=== PATIENT | male | born 1940 | race Caucasian/White ===

== ENCOUNTER 2019-03-28 02:56 | Observation (INO) | payer MEDICARE, OTHER ==
--- NOTE | 2019-03-28 03:09 | ED ---
Altered Mental Status HPI <Alejandra Pennington - Last Filed: 03/28/19 04:58> <Nilsa Stokes - Last Filed: 03/28/19 06:34> - General Stated Complaint: Altered Mental Status Time Seen by Provider: 03/28/19 03:08 - History of Present Illness Initial Comments: 79-year-old male patient presents to the emergency department today for evaluation after experiencing an episode of altered mental status. Patient's son states that they were preparing the patient for bed when he became acutely confused, he was repeating the same two questions over and over again. Family states he was not able to move his left side and seemed to be drifting to the left. States that this persisted so they called EMS. They report that symptoms started at 2:30 this morning. States that he was just discharged from [facility] after experiencing a fall earlier in the day. Family reports he underwent lab testing, computed tomography scan of the brain, and computed tomography scan of the abdomen. States that testing was unremarkable and he was discharged home. Family states that he is currently taking aspirin 2-3 times per week but is on no other anticoagulant or antiplatelet medications. Patient does have past medical history significant for COPD, and hypertension. Patient denies any recent rash, fever, chills, shortness breath, chest pain, abdominal pain, nausea, vomiting, diarrhea, constipation, back pain, numbness, tingling, dizziness, weakness, hematuria, dysuria, urinary urgency, urinary frequency, headache, visual changes, or any other complaints. (Alejandra Pennington) - Related Data Allergies Allergy/AdvReac Type Severity Reaction Status Date / Time No Known Allergies Allergy Verified 03/28/19 04:28 Review of Systems ROS Other: All systems not noted in ROS Statement are negative. <Alejandra Pennington - Last Filed: 03/28/19 04:58> ROS Other: All systems not noted in ROS Statement are negative. <Nilsa Stokes - Last Filed: 03/28/19 06:34> ROS Statement: Those systems with pertinent positive or pertinent negative responses have been documented in the HPI. General Exam General appearance: alert, in no apparent distress, other (This is a well- developed, well-nourished elderly male patient in no acute distress. Vital signs upon presentation are temperature 98.6F, pulse 75, respirations 13, blood pressure 89/40, pulse ox 98% on room air.) Eye exam: Present: normal appearance, PERRL, EOMI. Absent: scleral icterus, conjunctival injection, nystagmus, periorbital swelling ENT exam: Present: normal exam, normal oropharynx, mucous membranes moist Respiratory exam: Present: normal lung sounds bilaterally. Absent: respiratory distress, wheezes, rales, rhonchi, stridor Cardiovascular Exam: Present: regular rate, normal rhythm, normal heart sounds. Absent: systolic murmur, diastolic murmur, rubs, gallop, clicks GI/Abdominal exam: Present: soft, normal bowel sounds. Absent: distended, tenderness, guarding, rebound, rigid Neurological exam: Present: alert, CN II-XII intact. Absent: oriented X3 (Oriented 2) Expanded Speech: Present: fluid speech, expressive aphasia (Mild) Cranial nerves: EOM's Intact: Normal, Tongue Deviation: Normal, Nystagmus: Normal, Facial Sensation: Normal Motor strength exam: RUE: 5, LUE: 5, RLE: 2/1 (Chronic), LLE: 2/1 (Chronic) Eye Response: (4) open spontaneously Motor Response: (6) obeys commands Verbal Response: (4) confused conversation Jenaro Total: 14 Psychiatric exam: Present: normal affect, normal mood Skin exam: Present: warm, dry, intact, normal color. Absent: rash <Alejandra Pennington M - Last Filed: 03/28/19 04:58> Course Vital Signs 03/28/19 02:59 Temperature 98.6 F Pulse Rate 75 Respiratory 13 Rate Blood Pressure 89/40 O2 Sat by Pulse 98 Oximetry Medical Decision Making - Lab Data Result diagrams: 03/28/19 03:10 03/28/19 03:10 <Alejandra Pennington M - Last Filed: 03/28/19 04:58> - Lab Data Result diagrams: 03/28/19 03:10 03/28/19 03:10 <Nilsa Stokes P - Last Filed: 03/28/19 06:34> - Medical Decision Making She care was signed out to me by Alejandra Pennington nurse practitioner. Patient had presented for evaluation of change in mental status, patient apparently had some expressive aphasia and was leaning to the left. However on arrival patient was speaking clearly, moving all extremities only abnormality noted was some difficulty in naming items during the NIH test. Labs and imaging were ordered. Patient was noted to be mildly anemic. Head CT was unremarkable. At this time he do feel the patient warrants admission for evaluation of TIA. Patient care was discussed with Dr. Hollins who accepts the admission. I updated the patient and his family at a time, initially the patient wanted to decline admission however was encouraged to stay by his daughter and grandson at bedside. (Nilsa Stokes) - Lab Data Lab Results 03/28/19 03/28/19 03/28/19 Range/Units 03:10 03:10 03:10 WBC 5.8 (3.8-10.6) k/uL RBC 3.61 L (4.30-5.90) m/uL Hgb 10.7 L (13.0-17.5) gm/dL Hct 33.5 L (39.0-53.0) % MCV 92.9 (80.0-100.0) fL MCH 29.8 (25.0-35.0) pg MCHC 32.0 (31.0-37.0) g/dL RDW 15.0 (11.5-15.5) % Plt Count 286 (150-450) k/uL Neutrophils % 54 % Lymphocytes % 28 % Monocytes % 11 % Eosinophils % 2 % Basophils % 1 % Neutrophils # 3.1 (1.3-7.7) k/uL Lymphocytes # 1.6 (1.0-4.8) k/uL Monocytes # 0.6 (0-1.0) k/uL Eosinophils # 0.1 (0-0.7) k/uL Basophils # 0.1 (0-0.2) k/uL PT 10.9 (9.0-12.0) sec INR 1.0 (<1.2) APTT 26.4 (22.0-30.0) sec Sodium 133 L (137-145) mmol/L Potassium 4.1 (3.5-5.1) mmol/L Chloride 95 L (98-107) mmol/L Carbon Dioxide 29 (22-30) mmol/L Anion Gap 9 mmol/L BUN 20 (9-20) mg/dL Creatinine 1.69 H (0.66-1.25) mg/dL Est GFR (CKD-EPI)AfAm 44 (>60 ml/min/1.73 sqM) Est GFR (CKD-EPI)NonAf 38 (>60 ml/min/1.73 sqM) Glucose 81 (74-99) mg/dL Calcium 9.1 (8.4-10.2) mg/dL Magnesium 2.1 (1.6-2.3) mg/dL Total Bilirubin 0.5 (0.2-1.3) mg/dL AST 39 (17-59) U/L ALT 21 (21-72) U/L Alkaline Phosphatase 80 (38-126) U/L Troponin I (0.000-0.034) ng/mL Total Protein 6.3 (6.3-8.2) g/dL Albumin 3.3 L (3.5-5.0) g/dL 03/28/19 Range/Units 03:10 WBC (3.8-10.6) k/uL RBC (4.30-5.90) m/uL Hgb (13.0-17.5) gm/dL Hct (39.0-53.0) % MCV (80.0-100.0) fL MCH (25.0-35.0) pg MCHC (31.0-37.0) g/dL RDW (11.5-15.5) % Plt Count (150-450) k/uL Neutrophils % % Lymphocytes % % Monocytes % % Eosinophils % % Basophils % % Neutrophils # (1.3-7.7) k/uL Lymphocytes # (1.0-4.8) k/uL Monocytes # (0-1.0) k/uL Eosinophils # (0-0.7) k/uL Basophils # (0-0.2) k/uL PT (9.0-12.0) sec INR (<1.2) APTT (22.0-30.0) sec Sodium (137-145) mmol/L Potassium (3.5-5.1) mmol/L Chloride (98-107) mmol/L Carbon Dioxide (22-30) mmol/L Anion Gap mmol/L BUN (9-20) mg/dL Creatinine (0.66-1.25) mg/dL Est GFR (CKD-EPI)AfAm (>60 ml/min/1.73 sqM) Est GFR (CKD-EPI)NonAf (>60 ml/min/1.73 sqM) Glucose (74-99) mg/dL Calcium (8.4-10.2) mg/dL Magnesium (1.6-2.3) mg/dL Total Bilirubin (0.2-1.3) mg/dL AST (17-59) U/L ALT (21-72) U/L Alkaline Phosphatase (38-126) U/L Troponin I 0.026 (0.000-0.034) ng/mL Total Protein (6.3-8.2) g/dL Albumin (3.5-5.0) g/dL Disposition Decision to Admit Reason: Admit from EC Decision Date: 03/28/19 Decision Time: 04:58 <Alejandra Pennington - Last Filed: 03/28/19 04:58> <Nilsa Stokes - Last Filed: 03/28/19 06:34> Clinical Impression: TIA (transient ischemic attack) Disposition: ADMITTED IP TO THIS [facility] Condition: Serious Referrals: Nonstaff,Physician [Primary Care Provider] - 1-2 days
[2019-03-28 04:21] LABS: Basophils # (A) 0.1 k/uL (0-0.2); Basophils % (A) 1 %; Eosinophils # (A) 0.1 k/uL (0-0.7); Eosinophils % (A) 2 %; HCT 33.5 % (39.0-53.0); HGB 10.7 gm/dL (13.0-17.5); Lymphocytes # (A) 1.6 k/uL (1.0-4.8); Lymphocytes % (A) 28 %; MCH 29.8 pg (25.0-35.0); MCV 92.9 fL (80.0-100.0); Mean Platelet Volume 6.6; Monocytes # (A) 0.6 k/uL (0-1.0); Monocytes % (A) 11 %; Neutrophils # (A) 3.1 k/uL (1.3-7.7); Neutrophils % (A) 54 %; Platelet Count 286 k/uL (150-450); RBC 3.61 m/uL (4.30-5.90); WBC 5.8 k/uL (3.8-10.6)
[2019-03-28 04:22] LABS: Albumin 3.3 g/dL (3.5-5.0); Calcium 9.1 mg/dL (8.4-10.2); Magnesium 2.1 mg/dL (1.6-2.3); Potassium 4.1 mmol/L (3.5-5.1); Total Bilirubin 0.5 mg/dL (0.2-1.3); Total Protein 6.3 g/dL (6.3-8.2)
[2019-03-28 04:23] LABS: Partial Thromboplastin Time 26.4 sec (22.0-30.0); Prothrombin Time 10.9 sec (9.0-12.0)
--- NOTE | 2019-03-28 04:50 | CT ---
EXAM: CT Head Without Intravenous Contrast CLINICAL HISTORY: ITS.REASON CT Reason: Neuro Deficits TECHNIQUE: Axial computed tomography images of the head/brain without intravenous contrast. DLP is 1178.4 mGy-cm. This CT exam was performed using one or more of the following dose reduction techniques: automated exposure control, adjustment of the mA and/or kV according to patient size, and/or use of iterative reconstruction technique. COMPARISON: No relevant prior studies available. FINDINGS: Brain: No hemorrhage. No mass effect. Involutional changes. White matter hypodensities. Stoddard white junction preserved. MRI more sensitive, if indicated. Ventricles: Age appropriate Sinuses: Well aerated. Mastoid air cells: Partial opacification right mastoids IMPRESSION: No acute intracranial findings
[2019-03-28] MEDS ORDERED: NALOXONE 0.4 MG/ML 1 ML VIAL IV PRN (04:56)
--- NOTE | 2019-03-28 05:02 | XR ---
EXAM: XR Chest, 2 Views CLINICAL HISTORY: ITS.REASON XR Reason: altered mental status TECHNIQUE: Frontal and lateral views of the chest. COMPARISON: No relevant prior studies available. FINDINGS: Cardiac silhouette borderline in size. No overt edema. Elevation right hemidiaphragm. Suspected atelectasis and/or scar. Opacity right costophrenic angle likely scarring and/or summation. Pleural effusion considered less likely. IMPRESSION: Opacity right costophrenic angle likely scarring and/or summation. Pleural effusion considered less likely. Right hemidiaphragm elevation and suspected atelectasis and/or scar.
[2019-03-28] MEDS: SODIUM CHLORIDE 0.9% 1,000 ML IV SCH (07:41)
[2019-03-28] MEDS ORDERED: ASPIRIN 325 MG TAB PO SCH (09:00)
--- NOTE | 2019-03-28 10:52 | P.CNNES ---
History of Present Illness Consult date: 03/28/19 Requesting physician: Alejandra Pennington Reason for Consult: AMS Chief complaint: "Found down on the floor. 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 He was apparently left alone from 10am-5pm, and when family came home, he was on the floor and apparently had no idea how he had gotten there. He does not know if he may have passed out, though there was no bowel/bladder incontinence, tongue/cheek biting or unexplained headache or diffuse myalgias. Although his BLE is chronically weak, he denies other new foca l neuro c/o such as diplopia, amaurosis, facial numbness or droop, vertigo, dysarthria, dysphagia, aphasia, other focal numbness/weakness not mentioned above or tremors. He presented to an OSH where according to family he had CT Head and abdomen and was sent home. Shortly after he arrived home, he was noted to be confused and leaning to the left, so family brought him to our facility for evaluation. By the time he presented to our ER, his neuro symptoms had resolved. No acute vascular intervention was considered given rapidly improving neurological symptoms. He was admitted to our facility for conservative management. His vascular risk factors include age 79, HTN and h/o tobacco use. Review of Systems I have performed a 14-point organ ROS with patient; pertinents are as per HPI. Past Medical History Past Medical History: Cancer, COPD, Diabetes Mellitus, Hypertension Additional Past Medical History / Comment(s): Lung cancer, prostate cancer, skin cancer. History of Any Multi-Drug Resistant Organisms: MRSA Past Surgical History: Back Surgery Past Psychological History: No Psychological Hx Reported Smoking Status: Former smoker Past Alcohol Use History: Heavy Past Drug Use History: None Reported Medications and Allergies Home Medications Medication Instructions Recorded Confirmed Type Ascorbic Acid [Vitamin C with Prema 500 mg PO MOWEFR 03/28/19 03/28/19 History Hips] Aspirin EC [Ecotrin Low Dose] 81 mg PO MOWEFR 03/28/19 03/28/19 History Atorvastatin Calcium [Lipitor] 20 mg PO SUTUTHSA 03/28/19 03/28/19 History Calcium Carbonate/Vitamin D3 1 tab PO DAILY 03/28/19 03/28/19 History [Calcium 600-Vit D3 800 Caplet] Glucosam/Atul-Msm1/C/Nayan/Bosw 1 tab PO DAILY 03/28/19 03/28/19 History [Ivjuwewhfaf-Wkusamfkxcx-HNS Tb] Hydrochlorothiazide [Hydrodiuril] 12.5 mg PO DAILY PRN 03/28/19 03/28/19 History Losartan [Cozaar] 25 mg PO DAILY PRN 03/28/19 03/28/19 History Magnesium Oxide [Mag-Ox] 250 mg PO DAILY 03/28/19 03/28/19 History Multivitamins, Thera [Multivitamin 1 tab PO DAILY 03/28/19 03/28/19 History (formulary)] Nebivolol [Bystolic] 5 mg PO DAILY PRN 03/28/19 03/28/19 History QUEtiapine [SEROquel] 25 mg PO HS 03/28/19 03/28/19 History Ranitidine HCl [Zantac] 75 mg PO HS PRN 03/28/19 03/28/19 History Spironolactone [Aldactone] 12.5 mg PO DAILY 03/28/19 03/28/19 History Vitamin A & D 5000/400 Iu 1 tab PO DAILY 03/28/19 03/28/19 History Vitamin B Complex 1 cap PO DAILY 03/28/19 03/28/19 History Allergies Allergy/AdvReac Type Severity Reaction Status Date / Time No Known Allergies Allergy Verified 03/28/19 07:18 Physical Examination - Vital Signs Vital Signs: Vital Signs Temp Pulse Pulse Resp BP BP Pulse Ox 03/28/19 09:15 98.7 F 77 16 129/80 100 03/28/19 07:19 77 16 122/85 100 03/28/19 06:40 73 15 132/66 100 03/28/19 05:40 73 13 146/86 100 03/28/19 05:10 75 9 L 144/123 100 03/28/19 04:40 71 15 148/115 100 03/28/19 04:01 114/83 03/28/19 03:40 71 19 114/83 03/28/19 03:30 73 15 108/63 03/28/19 03:10 71 15 108/63 03/28/19 03:07 74 20 82/66 96 03/28/19 02:59 98.6 F 75 13 89/40 98 Intake and Output 03/27/19 03/28/19 03/28/19 22:59 06:59 14:59 Other: Weight 93.44 kg Gen NAD Pleasant and cooperative HEENT NCAT Sclera without icterus O/P clear Neck Supple No carotid bruit Cor RRR no m/r/g Lungs CTAB Abd Soft NTND +BS Ext Warm to touch 2+ BLE edema Neuro MS A+Ox4 Normal fluency Able to follow all commands CN PERRL VFF no APD EOMI no nystagmus or NERISSA No facial asymmetry Masseter's symmetric Hearing intact to normal voice bilaterally Speech not dysarthric Equal elevation of palate Tongue midline Sym shrug and SCM bilaterally Motor Normal bulk/tone No pronator drift or tremors Strength 5/5 in BUE 4-/5 in proximal and 2/5 in distal BLE Sens Diminished to LT/temp in BLE No neglect Coord No dysmetria on FTN bilaterally DTRs absent to tr sym throughout Toes mute bilaterally No clonus at achilles Gait Deferred NIHSS [id number] Results - Laboratory Findings CBC and BMP: 03/28/19 03:10 03/28/19 03:10 Abnormal Lab Findings: Abnormal Labs 03/28/19 03/28/19 03:10 03:10 RBC 3.61 L Hgb 10.7 L Hct 33.5 L Sodium 133 L Chloride 95 L Creatinine 1.69 H Albumin 3.3 L - Diagnostic Findings Additional findings: CT Head wo cont 03/28/19. No ICH. Nil acute. I have reviewed neuroimages myself. Assessment and Plan Assessment: Recurrent episodes of AMS, etiology unclear Plan: -Patient declines MRI -Cannot obtain CTA due to renal insufficiency -Carotid duplex -TTE -Has renal insufficiency; unclear baseline. May contribute to his mental status picture if this is acute -TSH, B12 -DVT prophylaxis -d/w patient and family in detail. All questions answered. Thank you for this consultation. Please call with ?. Time with Patient: Greater than 30 (Time spent in direct patient care, greater than 50% of which was spent in [id number]-[id number] counseling and coordination of care: 70 minutes)
--- NOTE | 2019-03-28 11:49 | US ---
EXAMINATION TYPE: US carotid duplex BILAT DATE OF EXAM: 03/28/2019 COMPARISON: NONE CLINICAL HISTORY: Recurrent episodes of AMS. EXAM MEASUREMENTS: RIGHT: Peak Systolic Velocity (PSV) cm/sec ----- Right CCA: 82.0 ----- Right ICA: 82.0 ----- Right ECA: 96.4 ICA/CCA ratio: 1.0 RIGHT: End Diastole cm/sec ----- Right CCA: 18.1 ----- Right ICA: 32.5 ----- Right ECA: 11.6 LEFT: Peak Systolic Velocity (PSV) cm/sec ----- Left CCA: 83.3 ----- Left ICA: 74.2 ----- Left ECA: 79.4 ICA/CCA ratio: 0.9 LEFT: End Diastole cm/sec ----- Left CCA: 24.7 ----- Left ICA: 18.1 ----- Left ECA: 12.9 VERTEBRALS (direction of flow): Right Vertebral: Antegrade Left Vertebral: Antegrade Exam limitations due to body habitus. Mild to moderate plaque noted bilaterally. No evidence of inc reased velocities as visualized IMPRESSION: Mild to moderate degree of grayscale atheromatous plaquing with no sonographically evide nt hemodynamically significant stenosis within either visualized carotid arterial system. Criteria for Assigning % of Stenosis / Diameter reduction (Estimation based on the indirect measurements of the internal carotid artery velocities (ICA PSV). 1. Normal (no stenosis)=ICA PSV < 125 cm/s: ratio < 2.0: ICA EDV<40 cm/s. 2. Less than 50% stenosis=ICA PSV < 125 cm/s: ratio < 2.0: ICA EDV<40 cm/s. 3. 50 to 69% stenosis=ICA PSV of 125 to 230 cm/s: ration 2.0 ? 4.0: ICA EDV 40-100 cm/s. 4. Greater than 70% stenosis to near occlusion= ICA PSV > 230 cm/s: ratio > 4.0: ICA EDV > 100 cm/s. 5. Near occlusion= ICA PSV velocities may be low or undetectable: variable ratio and ICA EDV. 6. Total occlusion=unable to detect flow.
[2019-03-28 13:49] LABS: T4, Free (Free Thyroxine) 1.1 ng/dL (0.78-2.19)
--- NOTE | 2019-03-28 15:15 | P.PN ---
Progress Note - Text Progress Note Date: 03/28/19 EEG no EPD. Carotid duplex limited due to neck size; some plaquing but no hemodynamically significant stenosis. CTA not doable due to reduced renal function. Discussed findings with family. They would like to keep patient at least O/N. Also discussed the possibility of MRI Brain, which would be the next step. However, patient would need to be heavily sedated, which I do not believe is a good idea since he came in with confusion, and heavy sedation may make his mental status even worse. Discussed that perhaps if his clinical picture improves, we can refer him to get an open outpatient MRI Brain on discharge. Also d/w RN. Neurology will be available again on 03/31/19.
--- NOTE | 2019-03-28 16:06 | EEG ---
ELECTROENCEPHALOGRAM REPORT DATE OF TESTING: March 28, 2019. CLINICAL PROBLEM: Episodes of altered mental status. EEG was requested to rule out epileptiform activity. MEDICATION: Aspirin. TYPE OF RECORDING: Bedside tracing using the 10-20 international electrode placement system. No sedation was given prior to the beginning of this recording. FINDINGS: At the beginning of this recording, there is a symmetric posterior alpha rhythm of 8-9 hertz that attenuates on eye opening and returns upon eye closure. There are moderate EMG artifacts that correspond to patient's movements that somewhat compromise the quality of this tracing. Photic stimulation elicits a symmetric driving response. Hyperventilation is not performed in this recording. There is no definitive sleep architecture seen. There is no background asymmetry, ictal or interictal patterns appreciated. IMPRESSION: This is a normal awake electroencephalogram without background asymmetry or epileptiform discharges. Clinical correlation is advised. ALLY / CHRISTOS: [id number] / MTDD
[2019-03-28] MEDS ORDERED: NEBIVOLOL 5 MG TAB PO PRN (16:37)
[2019-03-28] MEDS ORDERED: HYDROCHLOROTHIAZIDE 12.5 MG CAP PO PRN (16:37)
[2019-03-28] MEDS ORDERED: FAMOTIDINE 20 MG TAB PO PRN (16:37)
[2019-03-28] MEDS ORDERED: ASPIRIN 81 MG PO SCH (17:00)
[2019-03-28] MEDS ORDERED: LOSARTAN 25 MG TAB PO PRN (20:38)
--- NOTE | 2019-03-28 20:54 | HP ---
HISTORY AND PHYSICAL CHIEF COMPLAINT: TIA or CVA. HISTORY OF PRESENT ILLNESS: This is the first known admission for this 79-year-old white male. He lives in [place]. He is up visiting. Apparently he had an episode where he fell several days ago. He was taken the [facility] and treated and released. Prior to coming to this hospital, he suddenly was noted to have difficulty speaking and had weakness in the left arm and slurred speech. He was taken to [facility] and transferred here. By the time he got here, he was nearly back to normal neurologically except for a little bit of difficulty with speech. REVIEW OF SYSTEMS: He has had no headaches, diplopia, chest pain, shortness of breath, cough, hemoptysis, he probably has a history of heart disease in that he is on numerous medications suggesting that including aspirin, atorvastatin, hydrochlorothiazide, losartan, nebivolol, spironolactone. He denies any abdominal pain, nausea, vomiting, hematemesis, melena, hematochezia, jaundice, hematuria, frequency, urgency, renal failure, diabetes, etc. Past medical history, family history and personal and social histories reveal he is not allergic to any medication. He is on numerous medicines which can be found in detail in his MAR. Surgically he has had CA of the lung about 20 years ago and they removed a white lobe. He has had prostate cancer, 2 procedures on his LS spine, carpal tunnel syndrome surgery, PVOD affecting the right lower extremity, which resulted in ulceration of the right ankle where he had a split thickness skin graft. He had a malignancy on the right side of the scalp removed as well. He does not smoke or drink. PHYSICAL EXAMINATION: Blood pressure 129/80, pulse 77, respirations 16, temperature 98.7. In general he appeared to be well developed, well nourished and slightly overweight, in no acute distress. Lymph nodes are not enlarged. Chest is clear. Cardiac exam is normal sinus rhythm. There are no carotid bruits. No murmurs or extra sounds. Abdomen is soft and nontender without visceromegaly or masses. Bowel sounds present. Extremities are normal and he has evidence of his old skin graft on the medial aspect of his right ankle. Neurologically at this time, he is intact. IMPRESSION: 1. Transient ischemic attack. 2. Hypertension. 3. History of carcinoma of the lung. 4. History of carcinoma of the prostate. 5. Peripheral vascular occlusive disease. PLAN: 1. Bed rest. 2. IV fluids. 3. Carotid duplex imaging. 4. Neurology consult. MMODL / SYEDAN: [id number] /
[2019-03-28] MEDS: QUEtiapine 25 MG TAB PO SCH (22:07)
[2019-03-29] MEDS: SODIUM CHLORIDE 0.9% 1,000 ML IV SCH (06:40)
[2019-03-29] MEDS: SPIRONOLACTONE 25 MG TAB PO SCH (09:01)
[2019-03-29] MEDS: MAGNESIUM OXIDE 400 MG TAB PO SCH (09:01)
--- NOTE | 2019-03-29 13:46 | PN ---
PROGRESS NOTE CHIEF COMPLAINT: TIA. HISTORY OF PRESENT ILLNESS: This gentleman is doing fairly well. He has been seen by Neurology. He is refusing an MRI. He has neurologically nearly returned to normal. Blood pressure is slightly elevated. PHYSICAL EXAMINATION: Chest is clear. Cardiac exam is normal. Abdomen is soft, nontender. Speech is normal. He has no lateralizing weakness. IMPRESSION: 1. Transient ischemic attack. 2. Hypertension. PLAN: Progress activity and probably discharge soon if he continues to refuse further studies and remains stable. MMODL / IJN: [id number] /
[2019-03-29] MEDS: CLOPIDOGREL 75 MG TAB PO SCH (16:12)
[2019-03-29] MEDS: LISINOPRIL-HCTZ 20-25 MG 1 EACH TAB PO SCH (16:12)
[2019-03-29] MEDS: QUEtiapine 25 MG TAB PO SCH (20:41)
[2019-03-29] MEDS ORDERED: ATORVASTATIN 20 MG TAB PO SCH (21:00)
[2019-03-30] MEDS: SODIUM CHLORIDE 0.9% 1,000 ML IV SCH (06:33)
[2019-03-30] MEDS: LISINOPRIL-HCTZ 20-25 MG 1 EACH TAB PO SCH (08:36)
[2019-03-30] MEDS: SPIRONOLACTONE 25 MG TAB PO SCH (08:37)
[2019-03-30] MEDS: MAGNESIUM OXIDE 400 MG TAB PO SCH (08:37)
[2019-03-30] MEDS: CLOPIDOGREL 75 MG TAB PO SCH (08:37)
--- NOTE | 2019-03-30 10:25 | ECHOF ---
Referral Reason:TIA MEASUREMENTS -------- HEIGHT: 177.8 cm WEIGHT: 94.3 kg BP: 173/97 RVIDd: 3.4 cm (< 3.3) IVSd: 1.3 cm (0.6 - 1.1) LVIDd: 4.7 cm (3.9 - 5.3) LVPWd: 1.3 cm (0.6 - 1.1) IVSs: 1.4 cm LVIDs: 4.0 cm LVPWs: 1.6 cm LA Diam: 2.9 cm (2.7 - 3.8) LAESV Index (A-L): 28.75 ml/m Ao Diam: 3.3 cm (2.0 - 3.7) AV Cusp: 1.9 cm (1.5 - 2.6) MV EXCURSION: 17.354 mm (> 18.000) MV EF SLOPE: 78 mm/s (70 - 150) EPSS: 1.0 cm MV E Krishan: 0.86 m/s MV DecT: 212 ms MV A Krishan: 1.24 m/s MV E/A Ratio: 0.69 RAP: 5.00 mmHg RVSP: 51.31 mmHg FINDINGS -------- Sinus rhythm. This was a technically good study. The left ventricular size is normal. There is mild concentric left ventricular hypertrophy. Overa ll left ventricular systolic function is normal with, an EF between 55 - 60 %. The right ventricle is mildly enlarged. LA is midly dilated 29-33ml/m2. Possible PFO There is mild aortic valve sclerosis. The mitral valve leaflets are mildly thickened. Mild mitral regurgitation is present. Mild tricuspid regurgitation present. There is moderate pulmonary hypertension. The right ventric ular systolic pressure, as measured by Doppler, is 51.31mmHg. Trace/mild (physiologic) pulmonic regurgitation. The aortic root size is normal. IVC Not well visulized. There is no pericardial effusion. CONCLUSIONS -------- 1. Sinus rhythm. 2. This was a technically good study. 3. The left ventricular size is normal. 4. There is mild concentric left ventricular hypertrophy. 5. Overall left ventricular systolic function is normal with, an EF between 55 - 60 %. 6. The right ventricle is mildly enlarged. 7. LA is midly dilated 29-33ml/m2. 8. Possible PFO 9. There is mild aortic valve sclerosis. 10. The mitral valve leaflets are mildly thickened. 11. Mild mitral regurgitation is present. 12. Mild tricuspid regurgitation present. 13. There is moderate pulmonary hypertension. 14. The right ventricular systolic pressure, as measured by Doppler, is 51.31mmHg. 15. Trace/mild (physiologic) pulmonic regurgitation. 16. The aortic root size is normal. 17. IVC Not well visulized. 18. There is no pericardial effusion. SET UP OPERATOR TOOL: Nela Finch RDCS
[2019-03-30 11:35] VITALS: BP 104/61; PULSE 74; RESP 16; TEMP 97.5
--- NOTE | 2019-03-30 23:41 | DS ---
DISCHARGE SUMMARY CHIEF COMPLAINT: TIA. HISTORY OF PRESENT ILLNESS AND PHYSICAL EXAM: Details of this man's history and physical can be found in the initial workup. LABORATORY STUDIES: While he was in the hospital, he had laboratory studies, details of which can be found in the laboratory section of his chart. COURSE IN HOSPITAL: After admission, he was placed on bedrest, started on intravenous fluids and monitored frequently for neurologic changes, as well as vital signs. Blood pressure remained in good control and his neurologic symptoms almost completely disappeared. He is anxious to be discharged. It was felt he could go home on the and he will go home on his usual activity and diet. His usual medications and will be put on Plavix, which he was told he should stay on for at least 3 months along with aspirin. FINAL DIAGNOSES: 1. Transient ischemic attack. 2. Hypertension. OPERATIONS: None. CONSULTATIONS: Neurology. He is improved. ALLY / CHRISTOS: [id number] /
== END 2019-03-30 13:46 | disposition home or self-care (01) ==
LOC: EC 02:56 → 3SCARD 05:08
PROVIDERS: ADMIT Family Medicine; ATTEND Family Medicine
DX: G45.9 Transient cerebral ischemic attack, unspecified (principal); I10 Essential (primary) hypertension; D64.9 Anemia, unspecified; J44.9 Chronic obstructive pulmonary disease, unspecified; I73.9 Peripheral vascular disease, unspecified; G61.81 Chronic inflammatory demyelinating polyneuritis; E11.9 Type 2 diabetes mellitus without complications; Z85.118 Personal history of other malignant neoplasm of bronchus and lung; Z85.46 Personal history of malignant neoplasm of prostate; Z85.828 Personal history of other malignant neoplasm of skin; Z87.891 Personal history of nicotine dependence; Z86.14 Personal history of Methicillin resistant Staphylococcus aureus infection; Z79.82 Long term (current) use of aspirin; Z79.899 Other long term (current) drug therapy
CPT/HCPCS: 99285; 36415; 95816; 93306; 84439; 80053; 84443; 82607; 83735; 84484; 85025; 85610; 85730; 71046; 93880; 70450; G0378 ×3

== ENCOUNTER 2019-03-31 07:18 | Emergency (ER) | payer MEDICARE ==
[2019-03-31 07:29] VITALS: BP 103/58; PULSE 73; RESP 18
[2019-03-31 07:31] VITALS: TEMP 98.3
[2019-03-31 07:32] LABS: Glucose,Whole Blood 89 mg/dL (75-99)
--- NOTE | 2019-03-31 07:35 | ED ---
General Adult HPI - General Chief complaint: Neuro Symptoms/Deficit Stated complaint: TIA Source: patient, EMS Mode of arrival: EMS Limitations: no limitations - History of Present Illness Initial comments: Dictation was produced using [employer]ian[employer] dictation software. please excuse any grammatical, word or spelling errors. Chief Complaint: 79-year-old male past medical history of COPD, CVA, diabetes and hypertension presents with episode of aphasia. History of Present Illness: he is an 79-year-old male multiple comorbidities. Presents today via EMS for episode of aphasia. Patient was recently admitted and discharged with 10 of diagnosis of transient ischemic attack. He was discharged from our hospital 3 days ago. Patient was in his usual state of health. He was seen normal this morning upon waking. He according to EMS that up and went to sit in a chair. It was then found to be aphasic for several minutes. EMS was contacted and transferred to the emergency department. Upon arrival to the emergency department patient has no complaints. He is amnestic to how he ended up here in the hospital. Denies any neurologic deficits. No pa in complaints. Denies any fever, chills or night sweats. The ROS documented in this emergency department record has been reviewed and confirmed by me. Those systems with pertinent positive or negative responses have been documented in the HPI. All other systems are other negative and/or noncontributory. PHYSICAL EXAM: General Impression: Alert and oriented x3, not in acute distress HEENT: Normocephalic atraumatic, extra-ocular movements intact, pupils equal and reactive to light bilaterally, mucous membranes moist. Cardiovascular: Heart regular rate and rhythm, S1&S2 audible, no murmurs, rubs or gallops Chest: Lungs clear to auscultation bilaterally, no rhonchi, no wheeze, no rales Abdomen: Bowel sounds present, abdomen soft, non-tender, non-distended, no organomegaly Musculoskeletal: Pulses present and equal in all extremities, no peripheral edema Motor: no focal deficits noted Neurological: CN II-XII grossly intact, no focal motor or sensory deficits noted Skin: Multiple extremity ecchymoses Psych: Normal affect and mood ED course: 79-year-old Male presents with alleged episode of aphasia at home. As upon arrival are within acceptable limits. Patient has a NIH of 0. He has no complaints at this time. Chart was reviewed. Patient was admitted to the hospital for concerns of transient ischemic attack. Patient was admitted for approximately 2 days. According to documentation patient refused MRI. He had a limited ultrasound of the carotids and was not able to get CT angios the neck due to kidney disease. He did however have an EEG performed showing normal gay ke EEG. Laboratory evaluation obtained. CBC, coag panel, metabolic panel was obtained showing no acute processes. CT of the brain was obtained showing no acute intracranial abnormalities. Prior to patient being notified of there is a results he wanted to leave AGAINST MEDICAL ADVICE. Patient told that he could suffer significant permanent neurologic disabilities. I did recommend to him that he should stay in emergency department. Patient was coherent upon discussion. He will follow-up with his primary care physician. Risks, Benefits, and Treatment alternatives were discussed in detail with the patient. The patient is alert and oriented X 3 and has the capacity to make an informed decision. The risks of increased morbidity including the possibly of were explained to and understood by the patient who is choosing to leave against medical advice. The patient is encouraged to return any time should they want further treatment and diagnostic investigation. EKG interpretation: Ventricular rate 70, normal sinus rhythm, NH interval 1:30, care is 80, QTc 483. No NH prolongation, no QTC prolongation, no ST or T-wave changes noted. No old EKG for comparison Overall, this EKG is unremarkable - Related Data Home Medications Medication Instructions Recorded Confirmed Ascorbic Acid [Vitamin C with Prema 500 mg PO MOWEFR 03/28/19 03/31/19 Hips] Aspirin EC [Ecotrin Low Dose] 81 mg PO MOWEFR 03/28/19 03/31/19 Atorvastatin Calcium [Lipitor] 20 mg PO SUTUTHSA 03/28/19 03/31/19 Calcium Carbonate/Vitamin D3 1 tab PO DAILY 03/28/19 03/31/19 [Calcium 600-Vit D3 800 Caplet] Glucosam/Atul-Msm1/C/Nayan/Bosw 1 tab PO DAILY 03/28/19 03/31/19 [Mtsvvgflmkv-Byicrarxmow-FCZ Tb] Hydrochlorothiazide [Hydrodiuril] 12.5 mg PO DAILY PRN 03/28/19 03/31/19 Losartan [Cozaar] 25 mg PO DAILY PRN 03/28/19 03/31/19 Magnesium Oxide [Mag-Ox] 250 mg PO DAILY 03/28/19 03/31/19 Multivitamins, Thera [Multivitamin 1 tab PO DAILY 03/28/19 03/31/19 (formulary)] Nebivolol [Bystolic] 5 mg PO DAILY PRN 03/28/19 03/31/19 QUEtiapine [SEROquel] 25 mg PO HS 03/28/19 03/31/19 Ranitidine HCl [Zantac] 75 mg PO HS PRN 03/28/19 03/31/19 Spironolactone [Aldactone] 12.5 mg PO DAILY 03/28/19 03/31/19 Vitamin A & D 5000/400 Iu 1 tab PO DAILY 03/28/19 03/31/19 Vitamin B Complex 1 cap PO DAILY 03/28/19 03/31/19 Previous Rx's Medication Instructions Recorded Clopidogrel [Plavix] 75 mg PO DAILY #100 tab 03/30/19 Allergies Allergy/AdvReac Type Severity Reaction Status Date / Time No Known Allergies Allergy Verified 03/31/19 07:22 Review of Systems ROS Statement: Those systems with pertinent positive or pertinent negative responses have been documented in the HPI. ROS Other: All systems not noted in ROS Statement are negative. Past Medical History Past Medical History: Cancer, COPD, CVA/TIA, Diabetes Mellitus, Hypertension Additional Past Medical History / Comment(s): Lung cancer, prostate cancer, skin cancer History of Any Multi-Drug Resistant Organisms: MRSA Date of last positivie culture/infection: 2009 MDRO Source:: leg wound Past Surgical History: Back Surgery, Orthopedic Surgery, Prostate Surgery Additional Past Surgical History / Comment(s): bilat legs,right lobectomy,neck fusion Past Anesthesia/Blood Transfusion Reactions: No Reported Reaction Past Psychological History: No Psychological Hx Reported Smoking Status: Former smoker Past Alcohol Use History: Heavy Past Drug Use History: None Reported General Exam Limitations: no limitations Course Vital Signs 03/31/19 03/31/19 07:26 07:30 Temperature 98.3 F Pulse Rate 73 Respiratory 18 Rate Blood Pressure 103/58 O2 Sat by Pulse 98 Oximetry Medical Decision Making - Lab Data Result diagrams: 03/31/19 07:29 03/31/19 07:29 Lab Results 03/31/19 03/31/19 03/31/19 Range/Units 07:24 07:26 07:29 WBC 7.3 (3.8-10.6) k/uL RBC 3.72 L (4.30-5.90) m/uL Hgb 11.1 L (13.0-17.5) gm/dL Hct 35.2 L (39.0-53.0) % MCV 94.6 (80.0-100.0) fL MCH 29.8 (25.0-35.0) pg MCHC 31.5 (31.0-37.0) g/dL RDW 15.3 (11.5-15.5) % Plt Count 306 (150-450) k/uL Neutrophils % 49 % Lymphocytes % 36 % Monocytes % 8 % Eosinophils % 3 % Basophils % 1 % Neutrophils # 3.6 (1.3-7.7) k/uL Lymphocytes # 2.6 (1.0-4.8) k/uL Monocytes # 0.6 (0-1.0) k/uL Eosinophils # 0.2 (0-0.7) k/uL Basophils # 0.1 (0-0.2) k/uL Hypochromasia Slight PT (9.0-12.0) sec INR (<1.2) APTT (22.0-30.0) sec Sodium (137-145) mmol/L Potassium (3.5-5.1) mmol/L Chloride (98-107) mmol/L Carbon Dioxide (22-30) mmol/L Anion Gap mmol/L BUN (9-20) mg/dL Creatinine (0.66-1.25) mg/dL Est GFR (CKD-EPI)AfAm (>60 ml/min/1.73 sqM) Est GFR (CKD-EPI)NonAf (>60 ml/min/1.73 sqM) Glucose (74-99) mg/dL POC Glucose (mg/dL) 89 (75-99) mg/dL POC Glu [employer] ID Darrick Rodriguez Calcium (8.4-10.2) mg/dL Total Bilirubin (0.2-1.3) mg/dL AST (17-59) U/L ALT (21-72) U/L Alkaline Phosphatase (38-126) U/L Ammonia <9 (<30) umol/L Troponin I (0.000-0.034) ng/mL Total Protein (6.3-8.2) g/dL Albumin (3.5-5.0) g/dL 03/31/19 03/31/19 03/31/19 Range/Units 07: 07: 07:29 WBC (3.8-10.6) k/uL RBC (4.30-5.90) m/uL Hgb (13.0-17.5) gm/dL Hct (39.0-53.0) % MCV (80.0-100.0) fL MCH (25.0-35.0) pg MCHC (31.0-37.0) g/dL RDW (11.5-15.5) % Plt Count (150-450) k/uL Neutrophils % % Lymphocytes % % Monocytes % % Eosinophils % % Basophils % % Neutrophils # (1.3-7.7) k/uL Lymphocytes # (1.0-4.8) k/uL Monocytes # (0-1.0) k/uL Eosinophils # (0-0.7) k/uL Basophils # (0-0.2) k/uL Hypochromasia PT 10.2 (9.0-12.0) sec INR 0.9 (<1.2) APTT 25.6 (22.0-30.0) sec Sodium 135 L (137-145) mmol/L Potassium 4.4 (3.5-5.1) mmol/L Chloride 100 (98-107) mmol/L Carbon Dioxide 29 (22-30) mmol/L Anion Gap 6 mmol/L BUN 16 (9-20) mg/dL Creatinine 1.63 H (0.66-1.25) mg/dL Est GFR (CKD-EPI)AfAm 45 (>60 ml/min/1.73 sqM) Est GFR (CKD-EPI)NonAf 39 (>60 ml/min/1.73 sqM) Glucose 80 (74-99) mg/dL POC Glucose (mg/dL) (75-99) mg/dL POC Glu [employer] ID Calcium 8.9 (8.4-10.2) mg/dL Total Bilirubin 0.5 (0.2-1.3) mg/dL AST 40 (17-59) U/L ALT 24 (21-72) U/L Alkaline Phosphatase 65 (38-126) U/L Ammonia (<30) umol/L Troponin I <0.012 (0.000-0.034) ng/mL Total Protein 6.1 L (6.3-8.2) g/dL Albumin 3.0 L (3.5-5.0) g/dL Disposition Clinical Impression: Neurological deficit, transient Disposition: Left Against Medical Advice Condition: Fair Referrals: Nonstaff,Physician [Primary Care Provider] - 1-2 days Time of Disposition: 10:12
[2019-03-31 07:47] LABS: Basophils # (A) 0.1 k/uL (0-0.2); Basophils % (A) 1 %; Eosinophils # (A) 0.2 k/uL (0-0.7); Eosinophils % (A) 3 %; HCT 35.2 % (39.0-53.0); HGB 11.1 gm/dL (13.0-17.5); Hypochromasia Slight; Lymphocytes # (A) 2.6 k/uL (1.0-4.8); Lymphocytes % (A) 36 %; MCH 29.8 pg (25.0-35.0); MCHC 31.5 g/dL (31.0-37.0); MCV 94.6 fL (80.0-100.0); Mean Platelet Volume 7.7; Monocytes # (A) 0.6 k/uL (0-1.0); Monocytes % (A) 8 %; Neutrophils # (A) 3.6 k/uL (1.3-7.7); Neutrophils % (A) 49 %; Platelet Count 306 k/uL (150-450); RBC 3.72 m/uL (4.30-5.90); RDW 15.3 % (11.5-15.5); WBC 7.3 k/uL (3.8-10.6)
[2019-03-31 07:53] LABS: INR 0.9 (<1.2); Prothrombin Time 10.2 sec (9.0-12.0)
[2019-03-31 07:54] LABS: Partial Thromboplastin Time 25.6 sec (22.0-30.0)
[2019-03-31 07:56] LABS: Calcium 8.9 mg/dL (8.4-10.2); Total Bilirubin 0.5 mg/dL (0.2-1.3); Total Protein 6.1 g/dL (6.3-8.2)
[2019-03-31 08:02] LABS: Potassium 4.4 mmol/L (3.5-5.1)
--- NOTE | 2019-03-31 08:12 | CT ---
EXAMINATION TYPE: CT brain wo con DATE OF EXAM: 03/31/2019 COMPARISON: 03/28/2019 HISTORY: 79-year-old male confusion, Neuro deficits; TIA TECHNIQUE: Examination was done in axial plane without intravenous contrast. Coronal and sagittal r econstructions performed. CT DLP: 1247.4 mGycm Automated exposure control for dose reduction was used. FINDINGS: There is no evidence of acute intracranial hemorrhage, acute ischemic changes, mass, mass-effect, or extra-axial fluid collection. There is no effacement of cerebral sulci or basal subarachnoid cister ns. There is no hydrocephalus. There is no midline shift. Gallo-white matter distinction is preserv ed. Mild generalized supratentorial volume loss. Mild periventricular white matter hypodensities Undulating nasal septum. Paranasal sinuses and mastoid air cells otherwise appear clear. Orbits and g lobes are intact. IMPRESSION: Mild generalized atrophy. No acute intracranial abnormality seen.
== END 2019-03-31 10:10 | disposition left against medical advice (07) ==
LOC: EC 07:18
DX: R29.818 Other symptoms and signs involving the nervous system (principal); R47.01 Aphasia; I10 Essential (primary) hypertension; Z86.14 Personal history of Methicillin resistant Staphylococcus aureus infection; Z86.73 Personal history of transient ischemic attack (TIA), and cerebral infarction without residual deficits; Z85.46 Personal history of malignant neoplasm of prostate; Z85.118 Personal history of other malignant neoplasm of bronchus and lung; Z85.828 Personal history of other malignant neoplasm of skin; Z87.891 Personal history of nicotine dependence; Z79.82 Long term (current) use of aspirin; Z79.899 Other long term (current) drug therapy; Z53.29 Procedure and treatment not carried out because of patient's decision for other reasons
CPT/HCPCS: 36415; 70450; 80053; 82140; 84484; 85025; 85610; 85730; 93005; 99284